=== PATIENT | male | born 1955 | race Two or more races ===

== ENCOUNTER 2024-03-27 12:47 | Emergency (ER) | payer MEDICAID, OTHER ==
[~2024-03-27] VITALS: Ht 152.4 cm; Wt 61.2 kg
[2024-03-27 14:20] VITALS: BP 97/76; PULSE 87; RESP 16; TEMP 98.2; O2SAT 100
[2024-03-27] MEDS: KETOROLAC TROMETH 60MG/2ML VIAL IM ONE (14:57)
[2024-03-27] MEDS ORDERED: GABA-1308 PO (15:03)
[2024-03-27] MEDS ORDERED: IBUP1TAB5 PO (15:03)
--- NOTE | 2024-03-27 15:04 | ED.PDOC ---
History of Present Illness(SKN HPI Comments This is a 68-year-old male that comes in with shingles that was treated last week. He is not sure what medicine he was given but he is still having pain from his mid back all the way to the right flank to the front of the abdomen.. He states the pain is what is most bothering him. The lesions are all healed up. Chief Complaint: Rash Time Seen by MD: 14:13 Primary Care Provider: NONE History of Present Illness: Nurses Notes, Medications, Allergies Allergies: Coded Allergies: NO KNOWN ALLERGIES (Unverified , 03/27/24) Information Source: Patient Mode of Arrival: Ambulatory Past Medical History PAST MEDICAL HISTORY: DM, HTN Surgical History: Cholecystectomy Family History Family History: Family hx of HTN Social History Smoker: Non-Smoker Alcohol: Rarely Drugs: Denies Drug Use Lives In: Home EENTM: denies: blurred vision, double vision, ear bleeding, ear discharge, ear drainage, ear pain, ear ringing, eye pain, eye redness, hearing loss, mouth pain, mouth swelling, nasal discharge, nose bleeding, nose congestion, nose pain, photophobia, tearing, throat pain, throat swelling, voice changes, others Respiratory: denies: cough, hemoptysis, orthopnea, SOB at rest, shortness of b reath, SOB with excertion, stridor, wheezing, others Cardiovascular: denies: chest pain, dizzy spells, diaphoresis, Dyspnea on exertion, edema, irregular heart beat, left arm pain, lightheadedness, palpitations, PND, syncope, others Gastrointestinal: denies: abdomen distended, abdominal pain, blood streaked bowels, constipated, diarrhea, dysphagia, difficulty swallowing, hematemesis, melena, nausea, poor appetite, poor fluid intake, rectal bleeding, rectal pain, vomiting, others Integumetry: reports: rash Allergic/Immunocompromised: denies: Difficulty Healing, Frequent Infections, Hives, Itching, others Hematologic/Lymphatic: denies: anemia, blood clots, easy bleeding, easy bruising, swollen glands, others Endocrine: denies: excessive hunger, excessive sweating, excessive thirst, excessive urination, flushing, intolerance to cold, intolerance to heat, unexplained weight gain, unexplained weight loss, others Psychiatric: denies: anxiety, bipolar disorder, depression, hopeless, panic d isorder, schizophrenia, sleepless, suicidal, others Physical Exam General Appearance: No Apparent Distress, Normal HEENT: PERRL/EOMI, Pharynx Normal, TMs Normal Neck: Non-Tender, Normal Inspection Respiratory: Lungs Clear, Normal Breath Sounds Cardiovascular: Regular Rate/Rhythm Breast Exam: Deferred Gastrointestinal: Non Tender, Normal Bowel Sounds Genitalia: Deferred Pelvic: Deferred Rectal: Deferred Extremities: Normal inspection, Normal range of motion Neurologic: Alert, Normal Affect, Normal Mood Cerebellar Function: Normal Reflexes: NOT DONE (Dry scabbed lesions consistent with shingles from the back to the right flank to the abdomen) Skin: Rash Lymphatic: No Adenopathy Was a procedure done? Was a procedure done?: No Differential Diagnosis (INTG) Differential Diagnosis: Cellulitis X-Ray, Labs, Meds, VS Vital Signs Date Time Temp Pulse Resp B/P (MAP) Pulse Ox O2 Delivery O2 Flow Rate FiO2 03/27/24 14:20 98.2 87 16 97/76 (83) 100 98.2 03/27/24 14:20 87 16 100 Room Air 03/27/24 13:00 98.2 87 16 97/76 (83) 100 X-Ray, Labs, Meds, VS Comment Patient seen and examined by me. Patient does have shingles that are dry but is causing nerve pain causing him discomfort. He was given a Toradol shot here and I will send him home on some gabapentin. I warned the patient that the gabapentin might cause him to have a little bit of dizziness which is normal but the side effects should resolve Time of 1ST Reevaluation: 15:00 Reevaluation 1ST: Improved Patient Education/Counseling: Diagnosis, Treatment, Prognosis, Need For Follow Up Family Education/Counseling: No Family Present Departure 1 Departure Time of Disposition: 15:00 Impression: Primary Impression: Shingles Additional Impression: Acute pain associated with herpes zoster Disposition: 01 HOME / SELF CARE / HOMELESS Condition: Good Written Prescriptions Use the gabapentin as directed it might take you couple of days to get use of the side effects which might make you sleepy Continue with anti-inflammatories as well e-Prescriptions Gabapentin (Gabapentin) 100 Mg Cap 1 CAP PO TID for 10 Days, #90 CAP 2 Refills Prov: JASON MORALES [employer] SAL[employer] SERVICE SUPERVISOR 03/27/24 Ibuprofen Micronized (Ibuprofen) 600 Mg Tab 600 MG PO Q6HPRN PRN for 5 Days, #20 TAB Prov: JASON MORALES 03/27/24 Discharged With: Self Critical Care Note Critical Care Time?: No Stability Stability form required: JASON Wynn Mar 27, 2024 15:04
== END 2024-03-27 15:05 | disposition home or self-care (01) ==
LOC: ER 12:47
DX: B02.9 Zoster without complications (principal); I10 Essential (primary) hypertension; E11.9 Type 2 diabetes mellitus without complications; Z90.49 Acquired absence of other specified parts of digestive tract
CPT/HCPCS: 96372; 99283; J1885

== ENCOUNTER 2024-05-04 10:08 | Emergency (ER) | payer MEDICAID ==
[~2024-05-04] VITALS: Ht 157.5 cm; Wt 63.2 kg
[~2024-05-04 10:08] MED LIST: GABA-1308 PO; IBUP1TAB5 PO
[2024-05-04] MEDS ORDERED: IBUP-1453 PO (10:35)
[2024-05-04] MEDS ORDERED: LIDO5DIS21 TOP (10:35)
--- NOTE | 2024-05-04 10:37 | ED.PDOC ---
History of Present Illness HPI Comments 69y M who presents to the ED for chief complaint of abdominal pain. Pt states he has been having RUQ pain for the past 2 months. Pt states his pain is constant, describing the pain as burning, tingling sensation radiating to the back, with no associated exacerbating factor of food and no relieving factors. Pt states he was seen by provider for his symptoms and states he was given medications and states he has continued to have pain even after taking his medications. Pt otherwise denies nausea, vomiting, diarrhea, fever, cough, chills or diarrhea. Pt also states he has history of shingles and noted dermatomal scar on abdomen. Pt denies any other symptoms at this time. Chief Complaint: Abdominal Pain Time Seen by MD: 10:21 Primary Care Provider: NONE Reviewed Notes: Medications Allergies: Coded Allergies: NO KNOWN ALLERGIES (Unverified , 03/27/24) Home Meds Active Scripts Ibuprofen (Ibuprofen) 400 Mg Tab, 1 TAB PO Q6HPRN PRN for 5 Days, #20 TAB Prov:IRENE PARKS MD 05/04/24 Lidocaine (LIDODERM 5% TOPICAL PATCH) 1 Patch Ph, 1 PATCH TOP DAILY PRN for 14 Days, #14 PATCH Prov:IRENE PARKS MD 05/04/24 Gabapentin (Gabapentin) 100 Mg Cap, 1 CAP PO TID for 10 Days, #90 CAP 2 Refills Prov:JASON MORALESP 03/27/24 Ibuprofen Micronized (Ibuprofen) 600 Mg Tab, 600 MG PO Q6HPRN PRN for 5 Days, #20 TAB Prov:JASON MORALESP 03/27/24 Information Source: Patient Mode of Arrival: Ambulatory Past Medical History PAST MEDICAL HISTORY: DM Surgical History: Cholecystectomy, Denies all surgeries Family History Family History: Unknown Social History Smoker: Non-Smoker Alcohol: Denies ETOH Use Drugs: Denies Drug Use Lives In: Home Constitutional: denies: chills, diaphoresis, fatigue, fever, malaise, sweats, weakness, others EENTM: denies: blurred vision, double vision, ear bleeding, ear discharge, ear drainage, ear pain, ear ringing, eye pain, eye redness, hearing loss, mouth pain, mouth swelling, nasal discharge, nose bleeding, nose congestion, nose pain, photophobia, tearing, throat pain, throat swelling, voice changes, others Respiratory: denies: cough, hemoptysis, orthopnea, SOB at rest, shortness of breath, SOB with excertion, stridor, wheezing, others Cardiovascular: denies: chest pain, dizzy spells, diaphoresis, Dyspnea on exertion, edema, irregular heart beat, left arm pain, lightheadedness, palpitations, PND, syncope, others Gastrointestinal: reports: abdominal pain; denies: abdomen distended, blood streaked bowels, constipated, diarrhea, dysphagia, difficulty swallowing, hematemesis, melena, nausea, poor appetite, poor fluid intake, rectal bleeding, rectal pain, vomiting, others Genitourinary: denies: burning, dysuria, flank pain, frequency, hematuria, incontinence, penile discharge, penile sore, pain, testicle pain, testicle swelling, urgency, others Neurological: denies: dizziness, fainting, headache, left sided numbness, left sided weakness, numbness, paresthesia, pre-existing deficit, right sided numbness, right sided weakness, seizure, speech problems, tingling, tremors, weakness, others Musculoskeletal: denies: back pain, gout, joint pain, joint swelling, muscle pain, muscle stiffness, neck pain, others Integumetry: reports: rash; denies: bruises, change in color, change in hair/nails, dryness, laceration, lesions, lumps, wounds, others Allergic/Immunocompromised: denies: Difficulty Healing, Frequent Infections, Hives, Itching, others Hematologic/Lymphatic: denies: anemia, blood clots, easy bleeding, easy bruising, swollen glands, others Endocrine: denies: excessive hunger, excessive sweating, excessive thirst, excessive urination, flushing, intolerance to cold, intolerance to heat, unexplained weight gain, unexplained weight loss, others Psychiatric: denies: anxiety, bipolar disorder, depression, hopeless, panic disorder, schizophrenia, sleepless, suicidal, others All Other Systems: Reviewed and Negative Physical Exam General Appearance: No Apparent Distress, Normal HEENT: Normal ENT Inspection, Pharynx Normal, TMs Normal Neck: Full Range of Motion, Non-Tender, Normal, Normal Inspection Respiratory: Chest Non-Tender, Lungs Clear, No Accessory Muscle Use, No Respiratory Distress, Normal Breath Sounds Cardiovascular: No Edema, No JVD, No Murmur, No Gallop, Normal Peripheral Pulses, Regular Rate/Rhythm Breast Exam: Deferred Gastrointestinal: No Organomegaly, Non Tender, No Pulsatile Mass, Normal Bowel Sounds, Soft Genitalia: Deferred Pelvic: Deferred Rectal: Deferred Extremities: No calf tenderness, Normal capillary refill, Normal inspection, Normal range of motion, Non-tender, No pedal edema Musculoskeletal : Apperance: Normal Neurologic: Alert, teradata solution architect II-XII nml as Tested, No Motor Deficits, Normal Affect, Normal Mood, No Sensory Deficits Cerebellar Function: Normal, NOT DONE Reflexes: Normal, NOT DONE Skin: Dry, Normal Color, Rash (Old scabbed over rash in a dermatomal distribution starting in the right mid back and extending around the patient's abdomen terminating near the bottom of his ribs which coincides with the patient's reported area of symptoms. No surrounding cellulitis. No fresh vesicular lesions.), Warm Lymphatic: No Adenopathy Was a procedure done? Was a procedure done?: No Differential Dx Considerations may include: shingles, herpes zoster, gallstones, biliary colic, enteritis, cholecystitis, aortic dissection X-Ray, Labs, Meds, VS Vital Signs Date Time Temp Pulse Resp B/P (MAP) Pulse Ox O2 Delivery O2 Flow Rate FiO2 05/04/24 10:16 97.8 80 18 110/51 (70) 98 X-Ray, Labs, Meds, VS Comment 69-year-old male with known history of shingles and diabetes here today with the complaints of pain at the site of his prior shingles flare. Given the symptoms have been going on for longer than two months, antiviral medications such as acyclovir would not be beneficial for the patient. Steroids have also and unable to show significant improvement so they were not prescribed as well and I was concerned that they would rate his blood sugar given his history of diabetes. I did prescribe the patient lidocaine patches and a prescription for ibuprofen and I provided him with strict instructions on washing his hands frequently and avoiding touching or picking at the lesions and especially avoiding contact with a his eyes or the elderly/very young children. Patient expressed understanding. Patient was instructed to follow up with his primary care provider within 2-3 days for re-evaluation. Patient was given strict return precautions for worsening rash, fevers, p.o. intolerance, new numbness or weakness, or any other concerning symptoms. Patient was discharged home in stable condition ambulating with a steady gait in no distress. Time of 1ST Reevaluation: 11:00 Reevaluation 1ST: Unchanged Patient Education/Counseling: Diagnosis, Treatment, Prognosis, Need For Follow Up Family Education/Counseling: No Family Present Departure 1 Departure Time of Disposition: 10:59 Impression: Primary Impression: Damian Disposition: 01 HOME / SELF CARE / HOMELESS Condition: Stable Additional Instructions: Junior Project Manager puedes cuidarte en casa? [place] [facility]ksey medicamentos exactamente wally se los recetaron. Llame a la lnea de asesoramiento de lugo mdico o enfermera si anders que est teniendo un problema con lugo medicamento. Los medicamentos antivirales lo ayudan a mejorar ms rpido y pueden ayudar a prevenir problemas posteriores. Trate de no rascarse ni hurgarse las ampollas. Mantenga las ampollas hmedas hasta que sanen. Andres forma de hacerlo es cubrirlos con andres gala capa de vaselina, wally vaselina, y andres venda antiadherente. [place] un analgsico de venta jagruti, wally paracetamol (Tylenol), ibuprofeno (Advil, Motrin) o naproxeno (Aleve). Wendy y siga todas las instrucciones de la etiqueta. Evite el contacto cercano con personas hasta que las ampollas hayan sanado. Es muy importante que evite el contacto con personas que nunca hayan tenido varicela o que nunca hayan recibido la vacuna contra la varicela. Los bebs pequeos y cualquier persona que est embarazada o tenga dificultades para combatir infecciones (wally alguien con VIH, diabetes o cncer) corren un riesgo especial. Cundo deberas llamar para pedir ayuda? Llame a la lnea de asesoramiento de lugo mdico o enfermera ahora o busque atencin mdica inmediata si: Tiene fiebre nueva o ms manav. Tiene un geovany dolor de gia y rigidez en el jaxno. Pierdes la capacidad de pensar con claridad. La erupcin se extiende a la frente, la nariz, los ojos o los prpados. Tiene dolor en los ojos o lugo visin empeora. Tiene un nuevo dolor en la ciera o no puede aviation technician los msculos de la ciera. Las ampollas se extienden a nuevas partes de lugo cuerpo. Tiene sntomas de infeccin, wally aumento del dolor, hinchazn, calor o enrojecimiento. Est atento a los cambios en lugo roseann y asegrese de comunicarse con la lnea de asesoramiento de lugo mdico o enfermera si: La erupcin no peralta sanado despus de 2 a 4 semanas. An siente dolor despus de que la erupcin haya sanado. e-Prescriptions Ibuprofen (Ibuprofen) 400 Mg Tab 1 TAB PO Q6HPRN PRN for 5 Days, #20 TAB Prov: IRENE PARKS MD 05/04/24 Lidocaine (LIDODERM 5% TOPICAL PATCH) 1 Patch Ph 1 PATCH TOP DAILY PRN for 14 Days, #14 PATCH Prov: IRENE PARKS MD 05/04/24 Discharged With: Self Critical Care Note Critical Care Time?: No Stability Stability form required: No Heart Score Heart Score: Heart Score Response (Comments) Value History N/A 0 EKG N/A 0 Age N/A 0 Risk Factors N/A 0 Troponin N/A 0 Total 0 I personally scribed for ER ([email or web address]) on 05/04/24 at 10:43. Electronically submitted by Jared Aaron ([email or web address]). IRENE PARKS MD May 04, 2024 10:37 ER May 04, 2024 10:43
[2024-05-04 10:52] VITALS: BP 110/51; PULSE 80; RESP 18; TEMP 97.8; O2SAT 98
== END 2024-05-04 10:55 | disposition home or self-care (01) ==
LOC: ER 10:08
DX: B02.9 Zoster without complications (principal); E11.9 Type 2 diabetes mellitus without complications; Z79.899 Other long term (current) drug therapy; Z90.49 Acquired absence of other specified parts of digestive tract